=== PATIENT | male | born 1975 | race Caucasian/White ===

== ENCOUNTER 2020-09-03 18:19 | Emergency (ER) | payer BC ==
[~2020-09-03] VITALS: Ht 180.3 cm; Wt 108.9 kg
[2020-09-03 20:00] VITALS: BP 149/99
== END 2020-09-03 20:10 | disposition home or self-care (01) ==
LOC: FSED 18:35
DX: R21 Rash and other nonspecific skin eruption (principal); R60.9 Edema, unspecified
CPT/HCPCS: 80048; 83880; 85025; 85610; 93970; 99283